=== PATIENT | female | born 1945 | race Caucasian/White ===

== ENCOUNTER 2021-12-17 09:23 | Emergency (ER) | payer MEDICARE ==
[2021-12-17] MEDS ORDERED: LORazepam 1 MG Tab PO ONE (12:55)
[2021-12-17 12:57] LABS: HEMOGLOBIN A1C 5.8 % (4.5-6.2)
== END 2021-12-17 16:05 | disposition home or self-care (01) ==
LOC: JP.ED 09:23
DX: H49.01 Third [oculomotor] nerve palsy, right eye (principal); H53.2 Diplopia
CPT/HCPCS: 36415; 70450; 70551; 80048; 83036; 85025; 85651; 86140; 99284; A9270